=== PATIENT | female | born 1955 | race Two or more races ===

== ENCOUNTER → 2018-05-09 | Outpatient (CLI) | payer OTHER | END | disposition home or self-care (01) | LOC: NUCLEAR 08:40 | DX: C50.412 Malignant neoplasm of upper-outer quadrant of left female breast (principal); C77.3 Secondary and unspecified malignant neoplasm of axilla and upper limb lymph nodes | CPT/HCPCS: 78815; A9552 ==

== ENCOUNTER 2019-06-08 07:28 | Outpatient (CLI) | payer OTHER | END 2019-06-08 10:07 | disposition home or self-care (01) | LOC: NUCLEAR 07:28 → EDBD 07:28 → NUCLEAR 10:07 | DX: C50.412 Malignant neoplasm of upper-outer quadrant of left female breast (principal) | CPT/HCPCS: 78816; A9552 ==